=== PATIENT | female | born 1965 | race Caucasian/White ===

== ENCOUNTER 2018-05-16 15:10 | Emergency (ER) | payer OTHER ==
[~2018-05-16] VITALS: Ht 167.6 cm; Wt 144.2 kg
[~2018-05-16 15:10] MED LIST: AUGMENTIN 875875 MG PO; EXCEDRIN MIGRA1 EAC1 PO; IBUPROFEN 600600 M1 PO; NORCO 5-325 TA1 EACH PO; NUVIGIL250 MG PO; PRILOSEC 20 MG20 MG
[2018-05-16 15:18] VITALS: BP 151/103
[2018-05-16] MEDS ORDERED: ASPIR 8181 MG PO (15:21)
[2018-05-16] MEDS ORDERED: NORCO 5-325 TA1 EAC1 PO (15:29)
[2018-05-16] MEDS ORDERED: ROBAXIN500 MG PO (15:29)
== END 2018-05-16 15:39 | disposition home or self-care (01) ==
LOC: M.ERS 15:10
DX: S83.8X1A Sprain of other specified parts of right knee, initial encounter (principal); M71.21 Synovial cyst of popliteal space [Baker], right knee; J45.909 Unspecified asthma, uncomplicated; G47.30 Sleep apnea, unspecified; M32.9 Systemic lupus erythematosus, unspecified; Z90.49 Acquired absence of other specified parts of digestive tract; Z90.710 Acquired absence of both cervix and uterus; X58.XXXA Exposure to other specified factors, initial encounter; Y93.89 Activity, other specified; Y92.89 Other specified places as the place of occurrence of the external cause; Y99.8 Other external cause status

== ENCOUNTER 2018-05-30 11:05 | Emergency (ER) | payer OTHER ==
[~2018-05-30] VITALS: Ht 160 cm; Wt 136.1 kg
[~2018-05-30 11:05] MED LIST changes: +ASPIR 8181 MG PO; +NORCO 5-325 TA1 EAC1 PO; +ROBAXIN500 MG PO
[2018-05-30 11:31] LABS: ABSOLUTE EOSINOPHILS 0.1 thou/uL (0.0-0.7); ABSOLUTE LYMPHOCYTES 2.3 thou/uL (0.8-5.3); ABSOLUTE MONOCYTES 0.5 thou/uL (0.0-1.2); ABSOLUTE NEUTROPHILS 2.3 thou/uL (1.6-8.1); BASOPHILS 0.6 %; EOSINOPHILS 2.5 %; HEMATOCRIT 45.7 % (37.0-47.0); HEMOGLOBIN 15.8 gm/dL (12.0-15.0); LYMPHOCYTES 43.7 %; MCH 30.4 pg (26.0-34.0); MCHC 34.7 g/dL (28.0-37.0); MCV 87.8 fL (80.0-100.0); MONOCYTES 9.3 %; MPV 8.1 fl. (7.2-11.1); NUCLEATED RBCS 0 /100WBC; PLATELET COUNT* 214 thou/uL (150-400); POLYS 43.9 %; RDW-CV 14.5 % (10.5-14.5); WBC 5.3 thou/uL (4.0-11.0)
[2018-05-30 11:39] LABS: CREATININE 0.8 mg/dL (0.6-1.3); POTASSIUM 3.5 mmol/L (3.5-5.1)
[2018-05-30 11:43] LABS: ALBUMIN 3.2 g/dL (3.4-5.0); TOTAL BILIRUBIN 0.8 mg/dL (<0.1-1.0); TOTAL PROTEIN 7.8 g/dL (6.4-8.2)
[2018-05-30] MEDS ORDERED: NORCO 5-325 TA1 EACH PO (13:32)
[2018-05-30 13:46] VITALS: BP 168/89
== END 2018-05-30 14:00 | disposition home or self-care (01) ==
LOC: M.ERS 11:05
PROVIDERS: Family Medicine
DX: S16.1XXA Strain of muscle, fascia and tendon at neck level, initial encounter (principal); S40.012A Contusion of left shoulder, initial encounter; S50.812A Abrasion of left forearm, initial encounter; V89.2XXA Person injured in unspecified motor-vehicle accident, traffic, initial encounter; Y93.89 Activity, other specified; Y92.89 Other specified places as the place of occurrence of the external cause; Y99.8 Other external cause status

== ENCOUNTER → 2019-09-16 | Outpatient (CLI) | payer OTHER | LOC: M.CT 08:19 | DX: Z13.6 Encounter for screening for cardiovascular disorders (principal) ==

== ENCOUNTER → 2019-09-23 | Outpatient (CLI) | payer OTHER | LOC: M.CT 07:56 | DX: R91.1 Solitary pulmonary nodule (principal); J92.9 Pleural plaque without asbestos ==